=== PATIENT | female | born 1990 | race Caucasian/White ===

== ENCOUNTER 2019-10-04 15:29 | Outpatient (CLI) | payer MEDICAID, OTHER ==
[~2019-10-04] VITALS: Ht 157.5 cm; Wt 90.0 kg
[2019-10-04 16:02] LABS: MICROSCOPIC INDICATED
[2019-10-04 16:03] VITALS: BP 110/65
== END 2019-10-04 16:49 | disposition home or self-care (01) ==
LOC: LDOP 15:29
PROVIDERS: ATTEND Obstetrics & Gynecology Maternal & Fetal Medicine
DX: O26.892 Other specified pregnancy related conditions, second trimester (principal); Z3A.23 23 weeks gestation of pregnancy
CPT/HCPCS: 81001; 87086; 99201; G0463

== ENCOUNTER 2019-10-23 19:46 | Outpatient (CLI) | payer MEDICAID ==
[~2019-10-23] VITALS: Ht 152.4 cm; Wt 86.0 kg
[2019-10-23 20:00] VITALS: BP 116/61
[2019-10-23 20:01] LABS: MICROSCOPIC NOT IND
== END 2019-10-23 22:07 | disposition home or self-care (01) ==
LOC: LDOP 19:46
PROVIDERS: ATTEND Obstetrics & Gynecology Maternal & Fetal Medicine
DX: O32.1XX0 Maternal care for breech presentation, not applicable or unspecified (principal)
CPT/HCPCS: 59025; 76815; 81003; 87086; 99211; G0463

== ENCOUNTER 2020-01-07 06:45 | Inpatient (IN) | payer MEDICAID ==
[~2020-01-07] VITALS: Ht 152.4 cm; Wt 85.5 kg
[2020-01-07] MEDS ORDERED: PREN1TAB60 PO (07:13)
[2020-01-07] MEDS ORDERED: SODIUM CITRATE/CITRIC ACID 30 ML UDC ONE (07:21)
[2020-01-07] MEDS ORDERED: METOCLOPRAMIDE 5 MG/ML, 2ML ONE (07:21)
[2020-01-07] MEDS ORDERED: OXYTOCIN 30U/ 0.9% NaCL 500ML 500 ML ONE (07:21)
[2020-01-07] MEDS ORDERED: NEWBORN KIT ONE (07:21)
[2020-01-07 07:27] VITALS: BP 112/76
[2020-01-07] MEDS ORDERED: SODIUM CITRATE/CITRIC ACID 30 ML UDC PO ONE (07:30)
[2020-01-07] MEDS ORDERED: METOCLOPRAMIDE 5 MG/ML, 2ML IV ONE (07:30)
[2020-01-07] MEDS ORDERED: LACTATED RINGERS 1,000 ML IVBOLUS ONE (07:30)
[2020-01-07 07:37] LABS: BASOPHILS # (AUTO) 0.04 x10^3/uL (0-0.1); BASOPHILS % (AUTO) 0 % (0-1); EOSINOPHILS # (AUTO) 0.05 x10^3/uL (0-0.4); EOSINOPHILS % (AUTO) 1 % (1-7); LYMPHOCYTES # (AUTO) 1.68 x10^3/uL (1-3.4); LYMPHOCYTES % (AUTO) 20 % (22-44); MD NO; MEAN CORPUSCULAR HEMOGLOBIN 30.9 pg (27.0-34.8); MEAN CORPUSCULAR HGB CONC 33.9 g/dL (32.4-35.8); MEAN CORPUSCULAR VOLUME 91.1 fL (80-100); MEAN PLATELET VOLUME 11.8 fL (7.4-10.4); MONOCYTES # (AUTO) 0.61 x10^3/uL (0.2-0.8); MONOCYTES % (AUTO) 7 % (2-9); NEUTROPHILS # (AUTO) 6.22 x10^3/uL (1.8-6.8); NEUTROPHILS % (AUTO) 72 % (42-75); PLATELET COUNT 138 x10^3/uL (130-400); RED BLOOD COUNT 5.04 x10^6/uL (3.82-5.3); RED CELL DISTRIBUTION WIDTH 15.2 % (9.6-15.2)
[2020-01-07] MEDS: LACTATED RINGERS 1,000 ML IV SCH ×4 (08:06→18:06)
[2020-01-07] MEDS ORDERED: morphine SULFATE/PF 0.5 MG/ML, 10ML ONE (08:12)
[2020-01-07] MEDS ORDERED: FENTANYL PF 100 MCG/2ML ONE (08:12)
[2020-01-07] MEDS ORDERED: OXYTOCIN 10 UNITS/ML, 1ML ONE (08:25)
[2020-01-07] MEDS ORDERED: KETOROLAC 30 MG/1 ML ONE (08:25)
[2020-01-07] MEDS ORDERED: WATER-INJECTION,STERILE 10 ML IV ONE (08:25)
[2020-01-07] MEDS ORDERED: CEFAZOLIN 1,000 MG ONE (08:25)
[2020-01-07] MEDS ORDERED: DEXAMETHASONE 4 MG/ML, 1ML ONE (08:25)
[2020-01-07] MEDS ORDERED: ONDANSETRON 2MG/ML, 2ML ONE (08:25)
[2020-01-07] MEDS ORDERED: METHYLERGONOVINE 0.2 MG/ML IM PRN (08:30)
[2020-01-07] MEDS ORDERED: CARBOPROST TROMETHAMINE 250 MCG/ML, 1ML IM PRN (08:30)
[2020-01-07] MEDS ORDERED: DIPH,PERTUSS(ACELL),TET VAC/PF NC IM-VACC PRN (08:30)
[2020-01-07] MEDS: KETOROLAC 30 MG/1 ML IV SCH ×3 (08:30→20:48)
[2020-01-07] MEDS ORDERED: SIMETHICONE 80 MG CHEW TAB PO PRN (08:30)
[2020-01-07] MEDS ORDERED: ACETAMINOPHEN 325 MG TABLET PO PRN ×2 (08:30)
[2020-01-07] MEDS ORDERED: IBUPROFEN 600 MG TABLET PO PRN (08:30)
[2020-01-07] MEDS ORDERED: MISOPROSTOL 200 MCG TABLET PR PRN (08:30)
[2020-01-07] MEDS ORDERED: ONDANSETRON 2MG/ML, 2ML IV PRN (08:30)
[2020-01-07] MEDS ORDERED: morphine SULFATE 10 MG/ML, 1ML IVPush PRN (08:30)
[2020-01-07] MEDS ORDERED: MEASLES,MUMPS&RUBELLA VACC/PF 0.5 ML SQ-VACC PRN (08:30)
[2020-01-07] MEDS ORDERED: OXYcodone/APAP 5/325MG TABLET PO PRN (08:30)
[2020-01-07] MEDS: PRENATAL VIT/IRON/FA 1 EACH TABLET PO SCH (09:00)
[2020-01-07] MEDS: OXYTOCIN 30U/ 0.9% NaCL 500ML 500 ML IV SCH ×2 (10:51→18:06)
[2020-01-07 11:30] VITALS: BP 118/76
[2020-01-07] MEDS: OXYcodone/APAP 5/325MG TABLET PO PRN ×3 (13:13→22:21)
[2020-01-07 15:30] VITALS: BP 126/70
[2020-01-07 17:49] LABS: BASOPHILS # (AUTO) 0.01 x10^3/uL (0-0.1); BASOPHILS % (AUTO) 0 % (0-1); EOSINOPHILS # (AUTO) 0.01 x10^3/uL (0-0.4); EOSINOPHILS % (AUTO) 0 % (1-7); LYMPHOCYTES # (AUTO) 1.19 x10^3/uL (1-3.4); LYMPHOCYTES % (AUTO) 9 % (22-44); MD NO; MEAN CORPUSCULAR HEMOGLOBIN 30.9 pg (27.0-34.8); MEAN CORPUSCULAR VOLUME 90.9 fL (80-100); MEAN PLATELET VOLUME 11.4 fL (7.4-10.4); MONOCYTES # (AUTO) 0.55 x10^3/uL (0.2-0.8); MONOCYTES % (AUTO) 4 % (2-9); NEUTROPHILS # (AUTO) 11.04 x10^3/uL (1.8-6.8); NEUTROPHILS % (AUTO) 86 % (42-75); PLATELET COUNT 118 x10^3/uL (130-400); RED BLOOD COUNT 4.48 x10^6/uL (3.82-5.3); RED CELL DISTRIBUTION WIDTH 14.8 % (9.6-15.2)
[2020-01-07 19:00] VITALS: BP 105/66
[2020-01-07] MEDS: DOCUSATE 100 MG CAPSULE PO PRN (20:48)
[2020-01-08] VITALS: BP 108/70
[2020-01-08] MEDS: LACTATED RINGERS 1,000 ML IV SCH ×5 (00:06→15:16)
[2020-01-08] MEDS: OXYcodone/APAP 5/325MG TABLET PO PRN ×4 (02:57→21:45)
[2020-01-08] MEDS: KETOROLAC 30 MG/1 ML IV SCH ×4 (02:57→21:07)
[2020-01-08 03:25] VITALS: BP 109/70
[2020-01-08] MEDS: OXYTOCIN 30U/ 0.9% NaCL 500ML 500 ML IV SCH ×2 (04:06→14:06)
[2020-01-08 07:11] VITALS: BP 99/67
[2020-01-08] MEDS: PRENATAL VIT/IRON/FA 1 EACH TABLET PO SCH (07:29)
[2020-01-08] MEDS: DOCUSATE 100 MG CAPSULE PO PRN ×2 (07:29→21:06)
[2020-01-08 20:00] VITALS: BP 116/80
[2020-01-09] MEDS: OXYTOCIN 30U/ 0.9% NaCL 500ML 500 ML IV SCH ×2 (00:06→10:06)
[2020-01-09] MEDS: LACTATED RINGERS 1,000 ML IV SCH ×4 (00:06→10:06)
[2020-01-09] MEDS: OXYcodone/APAP 5/325MG TABLET PO PRN ×3 (02:09→11:36)
[2020-01-09] MEDS: KETOROLAC 30 MG/1 ML IV SCH (03:36)
[2020-01-09 07:42] VITALS: BP 114/76
[2020-01-09] MEDS: PRENATAL VIT/IRON/FA 1 EACH TABLET PO SCH (07:56)
[2020-01-09] MEDS: DOCUSATE 100 MG CAPSULE PO PRN (07:56)
[2020-01-09] MEDS ORDERED: IBUP-1222 PO (09:43)
[2020-01-09] MEDS ORDERED: OXYC-302 PO (09:44)
== END 2020-01-09 12:06 | disposition home or self-care (01) | DRG 787 ==
LOC: LDOP 06:45 → LDIP 07:07 → 2NW 11:28
PROVIDERS: ADMIT Obstetrics & Gynecology Maternal & Fetal Medicine; ATTEND Obstetrics & Gynecology Maternal & Fetal Medicine
PROC: 10D00Z1 Extraction of Products of Conception, Low, Open Approach (ICD-10-PCS; principal; 2020-01-07)
DX: O34.211 Maternal care for low transverse scar from previous cesarean delivery (principal); O99.12 Other diseases of the blood and blood-forming organs and certain disorders involving the immune mechanism complicating childbirth; O32.1XX0 Maternal care for breech presentation, not applicable or unspecified; Z37.0 Single live birth; Z3A.37 37 weeks gestation of pregnancy; D69.59 Other secondary thrombocytopenia; G89.18 Other acute postprocedural pain
CPT/HCPCS: 36415; 85025; 86592; 86850; 86900; G0378; J0690; J1100; J1885; J2274; J2405; J3010; J2590; J2765; J7120